=== PATIENT | male | born 1990 | race Caucasian/White ===

== ENCOUNTER 2022-11-22 00:04 | Emergency (ER) | payer OTHER ==
[~2022-11-22] VITALS: Ht 182.9 cm; Wt 95.3 kg
[2022-11-22 00:05] VITALS: BP 131/82
--- NOTE | 2022-11-22 00:14 | NUR ---
GLADIS JACOB. PT TO CHAIR C
--- NOTE | 2022-11-22 00:45 | NUR ---
PT BEING EVALUATED BY DR. GOODMAN
[2022-11-22 01:54] VITALS: BP 135/79
--- NOTE | 2022-11-22 01:54 | NUR ---
Patient discharged with v/s stable. Written and verbal after care instructions given and explained. Patient verbalized understanding. Ambulatory with steady gait and released to [facility]. All questions addressed prior to discharge.
== END 2022-11-22 01:54 ==
LOC: MED 00:04
DX: Z02.89 Encounter for other administrative examinations (principal); V89.2XXA Person injured in unspecified motor-vehicle accident, traffic, initial encounter; Y93.89 Activity, other specified; Y92.89 Other specified places as the place of occurrence of the external cause; Y99.8 Other external cause status
CPT/HCPCS: 99283